=== PATIENT | female | born 1980 | race Caucasian/White ===

== ENCOUNTER → 2016-04-21 | Outpatient (CLI) | payer OTHER ==
[2016-04-21 15:18] LABS: BASO % 0.2 % (0.0-1.0); EOS # 0.1 K/mm3 (0.0-0.50); LARGE UNSTAINED CELL # 0.2 K/mm3 (0.0-0.4); LARGE UNSTAINED CELL % 1.9 % (0.0-4.0); LYMPH # 1.8 K/mm3 (1.5-4.5); LYMPH % 19.2 % (24.0-44.0); MEAN CORPUSCULAR HEMOGLOBIN 30.3 pg (27.0-33.0); MEAN CORPUSCULAR HGB CONC 33.8 g/dl (32.0-36.5); MEAN CORPUSCULAR VOLUME 89.8 fl (80.0-96.0); MONO # 0.6 K/mm3 (0.0-0.8); MONO % 6.5 % (0.0-5.0); NEUTROPHILS # 6.5 K/mm3 (1.8-7.7); NEUTROPHILS % 71.2 % (36.0-66.0); PLATELET COUNT, AUTOMATED 222 k/mm3 (150-450); RED CELL DISTRIBUTION WIDTH 11.5 % (11.5-14.5); WHITE BLOOD COUNT 9.1 K/mm3 (4.0-10.0)
[2016-04-22 08:43] LABS: HIV SCRN NEGATIVE (NEGATIVE); HIV SCRN1 NEGATIVE (NEGATIVE)
[2016-04-22 08:44] LABS: CONTROL LINE INT CTR LINE PRESENT
== END ==
LOC: M LAB 14:14
PROVIDERS: ATTEND Specialist
DX: Z34.81 Encounter for supervision of other normal pregnancy, first trimester (principal)

== ENCOUNTER 2016-06-05 01:49 | Emergency (ER) | payer OTHER ==
[~2016-06-05] VITALS: Ht 160 cm; Wt 62.6 kg
[2016-06-05 01:53] VITALS: BP 159/88
[2016-06-05] MEDS ORDERED: AMOX500C PO (02:06)
[2016-06-05] MEDS ORDERED: NORCO 5/325MG TABLET (BULK) PO ONE (02:15)
[2016-06-05] MEDS ORDERED: AMOXICILLIN 500 MG CAP PO ONE (02:15)
[2016-06-05] MEDS ORDERED: LOVE1INJ SC (10:20)
[2016-06-05] MEDS ORDERED: CLEO300C2 PO (12:51)
[2016-06-06] MEDS ORDERED: CLEO300C2 PO (16:58)
== END 2016-06-05 02:18 | disposition home or self-care (01) ==
LOC: M ED 02:15
DX: O99.89 Other specified diseases and conditions complicating pregnancy, childbirth and the puerperium (principal); K08.9 Disorder of teeth and supporting structures, unspecified; I35.0 Nonrheumatic aortic (valve) stenosis; Z95.4 Presence of other heart-valve replacement; O99.330 Smoking (tobacco) complicating pregnancy, unspecified trimester; F17.210 Nicotine dependence, cigarettes, uncomplicated; Z3A.00 Weeks of gestation of pregnancy not specified

== ENCOUNTER 2016-06-05 10:03 | Emergency (ER) | payer OTHER ==
[~2016-06-05] VITALS: Ht 160 cm; Wt 62.6 kg
[~2016-06-05 10:03] MED LIST: AMOX500C PO
[2016-06-05] MEDS ORDERED: LOVE1INJ SC (10:20)
[2016-06-05] MEDS ORDERED: CLINDAMYCIN 900 MG in APPROPRIATE DILUENT 1 EA IV ONE (11:00)
[2016-06-05] MEDS ORDERED: MORPHINE 2 MG/ML 1ML SYRINGE IV ONE (11:00)
[2016-06-05 11:36] LABS: BASO % 0.3 % (0.0-1.0); EOS # 0.1 K/mm3 (0.0-0.50); EOS % 0.7 % (0.0-3.0); LARGE UNSTAINED CELL # 0.1 K/mm3 (0.0-0.4); LARGE UNSTAINED CELL % 1.1 % (0.0-4.0); LYMPH # 1.4 K/mm3 (1.5-4.5); LYMPH % 9.7 % (24.0-44.0); MEAN CORPUSCULAR HEMOGLOBIN 31.1 pg (27.0-33.0); MEAN CORPUSCULAR HGB CONC 34.8 g/dl (32.0-36.5); MEAN CORPUSCULAR VOLUME 89.5 fl (80.0-96.0); MONO # 0.8 K/mm3 (0.0-0.8); MONO % 6.1 % (0.0-5.0); NEUTROPHILS # 10.4 K/mm3 (1.8-7.7); NEUTROPHILS % 82.1 % (36.0-66.0); PLATELET COUNT, AUTOMATED 196 k/mm3 (150-450); RED CELL DISTRIBUTION WIDTH 11.9 % (11.5-14.5); WHITE BLOOD COUNT 12.7 K/mm3 (4.0-10.0)
[2016-06-05] MEDS ORDERED: MORPHINE 4 MG/ML 1ML SYRINGE IV ONE (12:30)
[2016-06-05] MEDS ORDERED: CLEO300C2 PO (12:51)
[2016-06-05 13:23] VITALS: BP 132/68
[2016-06-06] MEDS ORDERED: CLEO300C2 PO (16:58)
== END 2016-06-05 13:24 | disposition home or self-care (01) ==
LOC: M ED 10:56
DX: O99.89 Other specified diseases and conditions complicating pregnancy, childbirth and the puerperium (principal); K04.7 Periapical abscess without sinus; K02.9 Dental caries, unspecified; O99.330 Smoking (tobacco) complicating pregnancy, unspecified trimester; F17.210 Nicotine dependence, cigarettes, uncomplicated; Z95.4 Presence of other heart-valve replacement; Z3A.00 Weeks of gestation of pregnancy not specified

== ENCOUNTER 2016-06-06 16:09 | Emergency (ER) | payer OTHER ==
[~2016-06-06] VITALS: Ht 160 cm; Wt 62.6 kg
[2016-06-06 16:09] VITALS: BP 120/56
[~2016-06-06 16:09] MED LIST changes: +CLEO300C2 PO; +LOVE1INJ SC
[2016-06-06] MEDS ORDERED: CLEO300C2 PO (16:58)
== END 2016-06-06 17:03 | disposition home or self-care (01) ==
LOC: M ED 16:36
DX: K02.9 Dental caries, unspecified (principal); K08.89 Other specified disorders of teeth and supporting structures; F17.200 Nicotine dependence, unspecified, uncomplicated; Z79.01 Long term (current) use of anticoagulants; Z88.1 Allergy status to other antibiotic agents

== ENCOUNTER 2016-06-14 19:43 | Emergency (ER) | payer OTHER ==
[~2016-06-14] VITALS: Ht 160 cm; Wt 62.6 kg
[2016-06-14] MEDS ORDERED: ONDANSETRON 4MG/2ML VIAL (J2405) IV ONE (20:30)
[2016-06-14] MEDS ORDERED: NS 1,000 ML IV ONE (20:30)
[2016-06-14 21:04] LABS: BASO % 0.1 % (0.0-1.0); EOS % 0.3 % (0.0-3.0); LARGE UNSTAINED CELL # 0.1 K/mm3 (0.0-0.4); LARGE UNSTAINED CELL % 0.6 % (0.0-4.0); LYMPH # 0.4 K/mm3 (1.5-4.5); LYMPH % 3.8 % (24.0-44.0); MEAN CORPUSCULAR HEMOGLOBIN 31.4 pg (27.0-33.0); MEAN CORPUSCULAR HGB CONC 34.7 g/dl (32.0-36.5); MEAN CORPUSCULAR VOLUME 90.6 fl (80.0-96.0); MONO # 0.4 K/mm3 (0.0-0.8); MONO % 4.3 % (0.0-5.0); NEUTROPHILS # 9.1 K/mm3 (1.8-7.7); NEUTROPHILS % 90.9 % (36.0-66.0); PLATELET COUNT, AUTOMATED 169 k/mm3 (150-450)
[2016-06-14 21:27] LABS: ALBUMIN 3.6 GM/DL (3.2-5.2); ALBUMIN/GLOBULIN RATIO 1.06 (1.00-1.93); ALKALINE PHOSPHATASE 56 U/L (45-117); ALT/SGPT 30 U/L (12-78); AMYLASE 46 U/L (25-115); ANION GAP 10 MEQ/L (8-16); AST/SGOT 18 U/L (15-37); BILIRUBIN,DIRECT < 0.1 MG/DL (0.0-0.2); BILIRUBIN,TOTAL 0.3 MG/DL (0.2-1.0); BLOOD UREA NITROGEN 5 MG/DL (7-18); CALCIUM LEVEL 8.6 MG/DL (8.5-10.1); CARBON DIOXIDE LEVEL 22 MEQ/L (21-32); CHLORIDE LEVEL 104 MEQ/L (98-107); CREATININE FOR GFR 0.49 MG/DL (0.55-1.02); GLOMERULAR FILTRATION RATE > 60.0 (>60); GLUCOSE, FASTING 97 MG/DL (70-105); POTASSIUM SERUM 3.4 MEQ/L (3.5-5.1); SODIUM LEVEL 136 MEQ/L (136-145)
[2016-06-14] MEDS ORDERED: ZOFR4TAB3 PO (21:53)
[2016-06-14 22:34] VITALS: BP 105/51
== END 2016-06-14 22:32 | disposition home or self-care (01) ==
LOC: M ED 20:38
DX: O99.89 Other specified diseases and conditions complicating pregnancy, childbirth and the puerperium (principal); K29.00 Acute gastritis without bleeding; O99.419 Diseases of the circulatory system complicating pregnancy, unspecified trimester; I51.9 Heart disease, unspecified; Z95.1 Presence of aortocoronary bypass graft; O99.330 Smoking (tobacco) complicating pregnancy, unspecified trimester; Z82.49 Family history of ischemic heart disease and other diseases of the circulatory system
CPT/HCPCS: 80048; 80076; 81001; 82150; 83690; 85025; 87086; 96374; 99282; J2405

== ENCOUNTER → 2016-06-23 | Outpatient (CLI) | payer OTHER ==
[~2016-06-23] MED LIST changes: +ZOFR4TAB3 PO
[2016-06-23 11:24] LABS: INR 1.24
== END ==
LOC: M LAB 09:26
PROVIDERS: ATTEND Internal Medicine Cardiovascular Disease
DX: Z51.81 Encounter for therapeutic drug level monitoring (principal); Z95.2 Presence of prosthetic heart valve; Z79.01 Long term (current) use of anticoagulants

== ENCOUNTER → 2016-07-03 | Outpatient (CLI) | payer OTHER ==
[2016-07-03 11:56] LABS: INR 1.37
== END ==
LOC: M LAB 11:00
PROVIDERS: ATTEND Internal Medicine Cardiovascular Disease
DX: Z51.81 Encounter for therapeutic drug level monitoring (principal); Z79.01 Long term (current) use of anticoagulants; Z95.2 Presence of prosthetic heart valve

== ENCOUNTER → 2016-07-10 | Outpatient (CLI) | payer OTHER ==
[~2016-07-10] MED LIST changes: +ASPI81TA85 PO; +COUM7.5T PO; +HYDR-3713 PO; +TYLE325T5 PO; +WARF-22 PO
== END ==
LOC: M LAB 09:40
PROVIDERS: ATTEND Advanced Practice Midwife
DX: Z31.438 Encounter for other genetic testing of female for procreative management (principal)

== ENCOUNTER → 2016-07-10 | Outpatient (CLI) | payer OTHER ==
[2016-07-10 10:40] LABS: INR 1.89
== END ==
LOC: M LAB 09:43
PROVIDERS: ATTEND Physician Assistant
DX: Z95.2 Presence of prosthetic heart valve (principal); Z79.01 Long term (current) use of anticoagulants

== ENCOUNTER 2016-07-12 19:00 | Emergency (ER) | payer OTHER ==
[~2016-07-12] VITALS: Ht 160 cm; Wt 64.4 kg
[2016-07-12 19:00] VITALS: BP 146/70
[~2016-07-12 19:00] MED LIST changes: -ASPI81TA85 PO; -COUM7.5T PO; -HYDR-3713 PO; -TYLE325T5 PO; -WARF-22 PO
[2016-07-12] MEDS ORDERED: WARF-22 PO (19:15)
[2016-07-12] MEDS ORDERED: COUM7.5T PO (19:15)
[2016-07-12] MEDS ORDERED: TYLE325T5 PO (19:15)
[2016-07-12] MEDS ORDERED: ASPI81TA85 PO (19:15)
[2016-07-12] MEDS ORDERED: HYDR-3713 PO (20:06)
[2016-07-12] MEDS ORDERED: NORCO 5/325MG TABLET (BULK FOR ED) PO ONE (20:15)
[2016-07-12] MEDS ORDERED: AMOXICILLIN 500 MG CAP PO ONE (20:15)
== END 2016-07-12 20:20 | disposition home or self-care (01) ==
LOC: M ED 20:12
DX: O99.89 Other specified diseases and conditions complicating pregnancy, childbirth and the puerperium (principal); K08.9 Disorder of teeth and supporting structures, unspecified; Z3A.17 17 weeks gestation of pregnancy; Z88.1 Allergy status to other antibiotic agents; Z79.01 Long term (current) use of anticoagulants; Z79.82 Long term (current) use of aspirin; Z79.899 Other long term (current) drug therapy; Z95.4 Presence of other heart-valve replacement

== ENCOUNTER → 2016-07-21 | Outpatient (CLI) | payer OTHER ==
[~2016-07-21] MED LIST changes: +ASPI81TA85 PO; +COUM7.5T PO; +HYDR-3713 PO; +TYLE325T5 PO; +WARF-22 PO
[2016-07-21 12:19] LABS: INR 2.37
== END ==
LOC: M LAB 09:54
PROVIDERS: ATTEND Internal Medicine Cardiovascular Disease
DX: Z95.2 Presence of prosthetic heart valve (principal)

== ENCOUNTER → 2016-08-04 | Outpatient (CLI) | payer OTHER ==
[2016-08-04 11:25] LABS: INR 2.25
== END ==
LOC: M LAB 10:55
PROVIDERS: ATTEND Nurse Practitioner Family
DX: Z95.2 Presence of prosthetic heart valve (principal)

== ENCOUNTER → 2016-08-14 | Outpatient (CLI) | payer OTHER ==
[2016-08-14 09:12] LABS: INR 2.34
== END ==
LOC: M LAB 06:24
PROVIDERS: ATTEND Physician Assistant
DX: Z51.81 Encounter for therapeutic drug level monitoring (principal); Z79.01 Long term (current) use of anticoagulants; Z95.2 Presence of prosthetic heart valve

== ENCOUNTER → 2016-08-14 | Outpatient (CLI) | payer OTHER ==
[2016-08-14 08:26] LABS: BASO % 0.2 % (0.0-1.0); EOS # 0.1 K/mm3 (0.0-0.50); EOS % 0.7 % (0.0-3.0); LARGE UNSTAINED CELL # 0.1 K/mm3 (0.0-0.4); LYMPH % 9.8 % (24.0-44.0); MEAN CORPUSCULAR HEMOGLOBIN 32.4 pg (27.0-33.0); MEAN CORPUSCULAR HGB CONC 34.2 g/dl (32.0-36.5); MEAN CORPUSCULAR VOLUME 94.7 fl (80.0-96.0); MONO # 0.5 K/mm3 (0.0-0.8); MONO % 5.5 % (0.0-5.0); NEUTROPHILS % 82.7 % (36.0-66.0); PLATELET COUNT, AUTOMATED 168 k/mm3 (150-450); RED CELL DISTRIBUTION WIDTH 13.3 % (11.5-14.5); WHITE BLOOD COUNT 9.7 K/mm3 (4.0-10.0)
== END ==
LOC: M LAB 06:27
PROVIDERS: ATTEND Obstetrics & Gynecology
DX: Z36 Encounter for antenatal screening of mother (principal); Z79.01 Long term (current) use of anticoagulants; Z95.2 Presence of prosthetic heart valve

== ENCOUNTER → 2016-08-21 | Outpatient (CLI) | payer OTHER ==
[2016-08-21 11:34] LABS: INR 2.6
== END ==
LOC: M LAB 10:28
PROVIDERS: ATTEND Physician Assistant
DX: Z95.2 Presence of prosthetic heart valve (principal)

== ENCOUNTER → 2016-09-04 | Outpatient (CLI) | payer OTHER ==
[2016-09-04 13:28] LABS: INR 2.43
== END ==
LOC: M LAB 11:36
PROVIDERS: ATTEND Physician Assistant
DX: Z95.2 Presence of prosthetic heart valve (principal)

== ENCOUNTER → 2016-09-17 | Outpatient (CLI) | payer OTHER ==
[2016-09-17 14:17] LABS: INR 1.43
== END ==
LOC: M LAB 13:18
PROVIDERS: ATTEND Physician Assistant
DX: Z95.2 Presence of prosthetic heart valve (principal)

== ENCOUNTER → 2016-10-08 | Outpatient (CLI) | payer OTHER ==
[2016-10-08 12:21] LABS: INR 3.29
== END ==
LOC: M LAB 11:27
PROVIDERS: ATTEND Nurse Practitioner Family
DX: Z95.2 Presence of prosthetic heart valve (principal)

== ENCOUNTER → 2016-11-12 | Outpatient (CLI) | payer OTHER ==
[2016-11-12 12:06] LABS: BASO % 0.1 % (0.0-1.0); EOS # 0.1 K/mm3 (0.0-0.50); EOS % 0.8 % (0.0-3.0); LARGE UNSTAINED CELL # 0.1 K/mm3 (0.0-0.4); LARGE UNSTAINED CELL % 1.2 % (0.0-4.0); LYMPH # 1.2 K/mm3 (1.5-4.5); LYMPH % 9.5 % (24.0-44.0); MEAN CORPUSCULAR HEMOGLOBIN 32.1 pg (27.0-33.0); MEAN CORPUSCULAR HGB CONC 34.5 g/dl (32.0-36.5); MEAN CORPUSCULAR VOLUME 92.8 fl (80.0-96.0); MONO # 0.7 K/mm3 (0.0-0.8); MONO % 6.5 % (0.0-5.0); NEUTROPHILS # 9.1 K/mm3 (1.8-7.7); NEUTROPHILS % 81.9 % (36.0-66.0); PLATELET COUNT, AUTOMATED 232 k/mm3 (150-450); RED CELL DISTRIBUTION WIDTH 12.8 % (11.5-14.5); WHITE BLOOD COUNT 11.2 K/mm3 (4.0-10.0)
[2016-11-12 12:22] LABS: ALBUMIN 3.1 GM/DL (3.2-5.2); ANION GAP 10 MEQ/L (8-16); BLOOD UREA NITROGEN 10 MG/DL (7-18); CALCIUM LEVEL 9.1 MG/DL (8.5-10.1); CARBON DIOXIDE LEVEL 23 MEQ/L (21-32); CHLORIDE LEVEL 107 MEQ/L (98-107); CREATININE FOR GFR 0.59 MG/DL (0.55-1.02); GLOMERULAR FILTRATION RATE > 60.0 (>60); GLUCOSE, FASTING 89 MG/DL (70-105); SODIUM LEVEL 140 MEQ/L (136-145)
== END ==
LOC: M LAB 11:29
PROVIDERS: ATTEND Internal Medicine Cardiovascular Disease
DX: Q24.4 Congenital subaortic stenosis (principal); I27.2 Other secondary pulmonary hypertension

== ENCOUNTER 2016-11-25 19:40 | Outpatient (CLI) | payer OTHER ==
[~2016-11-25] VITALS: Ht 160 cm; Wt 68.0 kg
[2016-11-25 20:05] VITALS: BP 166/78
[2016-11-25 20:22] VITALS: BP 150/70
[2016-11-25 20:40] VITALS: BP 137/84
== END 2016-11-25 20:51 | disposition home or self-care (01) ==
LOC: M LDO 19:40
PROVIDERS: ATTEND Advanced Practice Midwife
DX: O47.03 False labor before 37 completed weeks of gestation, third trimester (principal); Z3A.36 36 weeks gestation of pregnancy; O99.419 Diseases of the circulatory system complicating pregnancy, unspecified trimester; Z87.74 Personal history of (corrected) congenital malformations of heart and circulatory system; I27.2 Other secondary pulmonary hypertension; Z95.2 Presence of prosthetic heart valve; Z88.1 Allergy status to other antibiotic agents

== ENCOUNTER → 2016-12-19 | Outpatient (CLI) | payer OTHER ==
[2016-12-19 12:45] LABS: INR 1.71
== END ==
LOC: M LAB 11:42
PROVIDERS: ATTEND Internal Medicine Cardiovascular Disease
DX: Z95.2 Presence of prosthetic heart valve (principal)

== ENCOUNTER → 2017-02-10 | Outpatient (CLI) | payer OTHER ==
[~2017-02-10] MED LIST changes: +COUM1TAB17 PO; +TYLE500T78 PO
[2017-02-10 13:17] LABS: INR 1.72
== END ==
LOC: M LAB 12:16
PROVIDERS: ATTEND Internal Medicine Cardiovascular Disease
DX: Z95.2 Presence of prosthetic heart valve (principal)

== ENCOUNTER 2017-02-18 06:01 | Day surgery (SDC) | payer OTHER ==
[~2017-02-18] VITALS: Ht 160 cm; Wt 66.7 kg
[2017-02-18] MEDS ORDERED: LR 1,000 ML IV SCH ×2 (06:15→10:15)
[2017-02-18] MEDS ORDERED: LIDOCAINE 1% MDV 20ML VIAL SQ PRN (06:15)
[2017-02-18 06:30] LABS: MEAN CORPUSCULAR HEMOGLOBIN 30.5 pg (27.0-33.0); MEAN CORPUSCULAR HGB CONC 34.4 g/dl (32.0-36.5); MEAN CORPUSCULAR VOLUME 88.5 fl (80.0-96.0); PLATELET COUNT, AUTOMATED 282 10^3/uL (150-450); RED CELL DISTRIBUTION WIDTH 11.9 % (11.5-14.5); WHITE BLOOD COUNT 6.6 10^3/uL (4.0-10.0)
[2017-02-18 06:44] LABS: CONTROL LINE HCG INT CTR LINE PRESENT
[2017-02-18] MEDS ORDERED: LOVE0.4I2 SC (06:52)
[2017-02-18 07:03] LABS: INR 1.02
[2017-02-18] MEDS ORDERED: ONDANSETRON 4MG/2ML VIAL (J2405) As Ordered ONE (07:13)
[2017-02-18] MEDS ORDERED: dexameTHASONE 4 MG/ML 1ML VIAL (J1100) As Ordered ONE (07:13)
[2017-02-18] MEDS ORDERED: LIDOCAINE 2% INJ 100 MG/5 ML SDV (FOR ANES.) As Ordered ONE (07:13)
[2017-02-18] MEDS ORDERED: ROCURONIUM BROMIDE 50 MG/5 ML VIAL As Ordered ONE (07:13)
[2017-02-18] MEDS ORDERED: PROPOFOL 200 MG/20 ML VIAL As Ordered ONE (07:13)
[2017-02-18] MEDS ORDERED: fentaNYL 100 MCG/2 ML INJECTION (J3010) As Ordered ONE (07:14)
[2017-02-18] MEDS ORDERED: MIDAZOLAM INJ 2 MG/2 ML VIAL (J2250) As Ordered ONE (07:14)
[2017-02-18] MEDS ORDERED: BUPIVACAINE HCL 0.25% 30 ML VIAL As Ordered ONE (07:16)
[2017-02-18] MEDS: SILVER NITRATE APPLICATOR As Ordered ONE ×2 (07:16→09:01)
[2017-02-18] MEDS ORDERED: GLYCOPYRROLATE INJ 0.2 MG/ML 2 ML VIAL As Ordered ONE (08:21)
[2017-02-18] MEDS ORDERED: NEOSTIGMINE 10 MG/10 ML VIAL (J2710) As Ordered ONE (08:21)
[2017-02-18] MEDS ORDERED: HYDROmorphone HCL 2 MG/ML 1ML VIAL (J1170) As Ordered ONE (08:24)
--- NOTE | 2017-02-18 09:52 | RO ---
DATE OF PROCEDURE: 02/18/2017 PREOPERATIVE DIAGNOSIS: Satisfied parity. POSTOPERATIVE DIAGNOSIS: Satisfied parity. PROCEDURE PERFORMED: Laparoscopic bilateral salpingectomy. SURGEON: Ari Baxter DO PHOTO OPTICS TECHNICIAN: DAVIS Card-III ANESTHESIA TYPE: General endotracheal. SPECIMENS SENT TO PATHOLOGY: Bilateral fallopian tubes. ESTIMATED BLOOD LOSS: 10 mL. FLUIDS REPLACED: 1000 mL lactated Ringer. DRAINS: Singh catheter. URINE OUTPUT: 300 mL. COMPLICATIONS: None. PREOPERATIVE ANTIBIOTICS: None indicated. INTRAOPERATIVE FINDINGS: The uterus was approximately 8-10-week size with multiple subserosal fibroids, the largest measuring approximately 2-3 cm in greatest dimension. Otherwise, normal bilateral adnexa, normal-appearing ovaries on the right and left side. No other intra-abdominal masses. There are some physiologic adhesions on the left side attached to the sigmoid colon to the left pelvic sidewall. Normal-appearing liver edge and gallbladder. Appendix not visualized. DESCRIPTION OF PROCEDURE: The patient was counseled and consented on the risks, benefits, indications, and alternatives of the procedure. Informed consent was obtained. She was taken to the operating room with an IV running and placed on the operating table in the dorsal supine position. General anesthesia was administered and the airway secured without any difficulty. She was placed in the low lithotomy position. She was prepared and draped in normal sterile fashion. Time-out was performed per protocol. Attention was turned to the pelvis. The Singh catheter was placed under sterile conditions. A sterile speculum was placed into the vagina with good visualization of the cervix. The anterior lip of the cervix was grasped with a single-tooth tenaculum, and downward traction was applied. The cervix was sequentially dilated with Jovani dilators. The uterus sounded to 8 cm. The Hul[employer] uterine manipulator was placed without any difficulty. The sterile speculum was removed. Attention was turned to the abdomen. A glove switch was performed. 0.25% Marcaine was injected into the umbilicus. An 8 mm umbilical incision was made with the #11 blade. Through this incision, a Veress needle was placed into the intraperitoneal cavity. Intraperitoneal placement was confirmed with ease of flow of normal saline, negative return on aspiration, and a positive drop test. Opening pressure was 6 mmHg. The abdomen was insufflated with 1.5 liters of gas. The Veress needle was removed. The size 5 mm XL laparoscopic trocar was used to gain laparoscopic entry into the intraperitoneal cavity. Intraperitoneal placement through the umbilical incision was confirmed with laparoscopic visualization. No additional bleeding or injury was noted. The patient was placed in steep Trendelenburg. Two additional laparoscopic port sites were placed on the patient's left side and the lower abdomen. 5 mm incisions were made after injection 0.25% Marcaine through these 5 mm incisions. 5 mm XL laparoscopic trocars were placed under direct visualization. The umbilical cannula was traded out for an 8 mm cannula to accommodate the fallopian tube removal. Attention was first turned to the right fallopian tube. The right fallopian tube was grasped at the fimbriated end and elevated. The underlying mesosalpinx/broad ligament was sequentially clamped, coagulated, and transected with the LigaSure device until the level of the cornu was reached. At the level of cornu, the fallopian tube was amputated. This fallopian tube was brought through a 5 mm port without any difficulty. Attention was then turned to the left fallopian tube. The left fallopian tube was followed out to the fimbriated end. The fimbria was grasped and elevated. The underlying mesosalpinx was sequentially clamped, coagulated, and transected. The fimbria was removed. However, too large to fit through the 5 mm cannula. This was placed in the posterior cul-de-sac. The remainder of the left fallopian tube was grasped and elevated, and the underlying mesosalpinx was sequentially clamped, coagulated, and transected with the LigaSure device until the level of cornu was reached, and the left fallopian tube was then amputated. The left fallopian tube segment was brought through the 5 mm cannula. The camera was switched to be placed in the 5 mm cannula through the 8 mm cannula. The remaining fimbriated end was removed out of the abdomen. Each specimen was sent together for final permanent section. The abdomen and pelvis were inspected. Excellent hemostasis was noted. Gas was released from the abdomen. As the gas was being released from the abdomen, no additional bleeding was noted. The cannulas were removed. The skin incisions were closed with 4-0 Monocryl in subcuticular fashion and reinforced with Dermabond. Sponge, lap, needle, and instrument counts were correct. Attention was turned to the vagina. The single-tooth tenaculum was removed. The [employer] uterine manipulator was removed. Sterile speculum was placed. The tenaculum sites were cauterized with silver nitrate. Excellent hemostasis was achieved. Sterile speculum was removed. The Singh catheter was removed. Sponge, lap, needle, and instrument counts were correct. The patient tolerated the entire procedure well. She was transferred to the postanesthesia care unit (PACU) in good stable condition.
[2017-02-18] MEDS ORDERED: METOCLOPRAMIDE INJ 10MG/2ML VIAL (J2765) IV PRN (10:15)
[2017-02-18] MEDS ORDERED: HYDROmorphone HCL 1 MG/ML SYRINGE (J1170) IV PRN (10:15)
[2017-02-18] MEDS ORDERED: fentaNYL 100 MCG/2 ML INJECTION (J3010) IV PRN (10:15)
[2017-02-18] MEDS ORDERED: PERCOCET 5MG/325MG TAB PO PRN (10:15)
[2017-02-18 10:45] VITALS: BP 130/62
== END 2017-02-18 10:55 | disposition home or self-care (01) ==
LOC: M SDC 06:01
PROVIDERS: ATTEND Obstetrics & Gynecology
DX: Z30.2 Encounter for sterilization (principal); I35.0 Nonrheumatic aortic (valve) stenosis; Q24.9 Congenital malformation of heart, unspecified; T88.59XD Other complications of anesthesia, subsequent encounter; K21.9 Gastro-esophageal reflux disease without esophagitis; G43.909 Migraine, unspecified, not intractable, without status migrainosus; Z79.01 Long term (current) use of anticoagulants; Z72.0 Tobacco use; Z86.79 Personal history of other diseases of the circulatory system
CPT/HCPCS: 36415; 58661; 84703; 85027; 85610; 86850; 86870; 86900; 86901; 88302; J1100; J1170; J2250; J2405; J2710; J3010

== ENCOUNTER → 2017-04-03 | Outpatient (CLI) | payer OTHER ==
[2017-04-03 20:39] LABS: ESTIMATED AVERAGE GLUCOSE 94 MG/DL (60-110); HEMOGLOBIN A1c 4.9 %
[2017-04-03 20:49] LABS: ALBUMIN 3.8 GM/DL (3.2-5.2); ALBUMIN/GLOBULIN RATIO 1.15 (1.00-1.93); ALKALINE PHOSPHATASE 111 U/L (45-117); ALT/SGPT 29 U/L (12-78); ANION GAP 7 MEQ/L (8-16); AST/SGOT 20 U/L (7-37); BILIRUBIN,TOTAL 0.2 MG/DL (0.2-1.0); BLOOD UREA NITROGEN 15 MG/DL (7-18); CALCIUM LEVEL 8.4 MG/DL (8.5-10.1); CARBON DIOXIDE LEVEL 29 MEQ/L (21-32); CHLORIDE LEVEL 106 MEQ/L (98-107); CREATININE FOR GFR 0.95 MG/DL (0.55-1.02); FREE T4 0.97 NG/DL (0.76-1.46); GLOMERULAR FILTRATION RATE > 60.0 (>60); GLUCOSE, FASTING 110 MG/DL (70-105); POTASSIUM SERUM 3.7 MEQ/L (3.5-5.1); SODIUM LEVEL 142 MEQ/L (136-145); TOTAL PROTEIN 7.1 GM/DL (6.4-8.2)
== END ==
LOC: M LAB 15:47
DX: Z13.29 Encounter for screening for other suspected endocrine disorder (principal)
CPT/HCPCS: 84443

== ENCOUNTER → 2017-04-17 | Outpatient (CLI) | payer OTHER ==
[2017-04-17 11:09] LABS: INR 1.74; PROTHROMBIN TIME 20.9 SECONDS (12.4-14.5)
== END ==
LOC: M LAB 10:14
DX: Z95.2 Presence of prosthetic heart valve (principal)
CPT/HCPCS: 85610

== ENCOUNTER → 2017-05-15 | Outpatient (CLI) | payer OTHER ==
[2017-05-15 11:52] LABS: D-DIMER QUANT 315.1 ng/ml (<500)
== END ==
LOC: M LAB 11:10
DX: R07.1 Chest pain on breathing (principal); Z51.81 Encounter for therapeutic drug level monitoring; Z79.01 Long term (current) use of anticoagulants; Z95.2 Presence of prosthetic heart valve
CPT/HCPCS: 71046

== ENCOUNTER → 2017-05-15 | Outpatient (CLI) | payer OTHER ==
[2017-05-15 11:49] LABS: INR 2.39
== END ==
LOC: M LAB 11:16
DX: Z51.81 Encounter for therapeutic drug level monitoring (principal); Z79.01 Long term (current) use of anticoagulants; Z95.2 Presence of prosthetic heart valve
CPT/HCPCS: 85610

== ENCOUNTER → 2017-06-02 | Outpatient (CLI) | payer OTHER ==
[2017-06-02 10:46] LABS: ERYTHROCYTE SEDIMENTATION RATE 18 mm/hr (0-20)
[2017-06-02 11:07] LABS: C REACTIVE PROTEIN QUANTITATIV < 0.30 MG/DL (0.00-0.30)
== END ==
LOC: M LAB 09:57
DX: R07.1 Chest pain on breathing (principal)
CPT/HCPCS: 86140

== ENCOUNTER → 2017-06-18 | Outpatient (CLI) | payer OTHER ==
[2017-06-18 10:35] LABS: INR 1.44; PROTHROMBIN TIME 17.9 SECONDS (12.4-14.5)
== END ==
LOC: M LAB 09:22
DX: Z95.2 Presence of prosthetic heart valve (principal)

== ENCOUNTER → 2017-06-26 | Outpatient (CLI) | payer OTHER ==
[2017-06-26 12:07] LABS: INR 2.39
== END ==
LOC: M LAB 11:12
DX: Z95.2 Presence of prosthetic heart valve (principal); Z79.01 Long term (current) use of anticoagulants
CPT/HCPCS: 85610

== ENCOUNTER → 2017-07-30 | Outpatient (CLI) | payer OTHER ==
[2017-07-30 13:14] LABS: INR 2.22; PROTHROMBIN TIME 25.5 SECONDS (12.4-14.5)
== END ==
LOC: M LAB 12:43
DX: Z95.2 Presence of prosthetic heart valve (principal)
CPT/HCPCS: 85610

== ENCOUNTER → 2017-09-10 | Outpatient (CLI) | payer OTHER | LOC: M LAB 14:26 | DX: Z95.2 Presence of prosthetic heart valve (principal) | CPT/HCPCS: 85610 ==

== ENCOUNTER → 2017-10-13 | Outpatient (CLI) | payer OTHER ==
[2017-10-13 15:48] LABS: INR 1.38; PROTHROMBIN TIME 17.2 SECONDS (12.1-14.4)
== END ==
LOC: M LAB 11:38
DX: Z51.81 Encounter for therapeutic drug level monitoring (principal); Z79.01 Long term (current) use of anticoagulants; Z95.2 Presence of prosthetic heart valve
CPT/HCPCS: 85610

== ENCOUNTER → 2018-01-14 | Outpatient (CLI) | payer OTHER ==
[2018-01-14 11:37] LABS: INR 3.37; PROTHROMBIN TIME 34.9 SECONDS (12.1-14.4)
== END ==
LOC: M LAB 10:46
DX: Z51.81 Encounter for therapeutic drug level monitoring (principal); Z79.01 Long term (current) use of anticoagulants; Z95.2 Presence of prosthetic heart valve
CPT/HCPCS: 85610

== ENCOUNTER → 2018-02-12 | Outpatient (CLI) | payer OTHER ==
[2018-02-12 12:57] LABS: INR 4.76; PROTHROMBIN TIME 45.9 SECONDS (12.1-14.4)
== END ==
LOC: M LAB 11:31
DX: Z95.2 Presence of prosthetic heart valve (principal)
CPT/HCPCS: 85610

== ENCOUNTER → 2018-04-02 | Outpatient (CLI) | payer OTHER ==
[~2018-04-02] MED LIST changes: +LOVE0.4I2 SC; +ZOFR4TAB14 PO; -ZOFR4TAB3 PO
[2018-04-02 08:05] LABS: INR 2.25; PROTHROMBIN TIME 25.4 SECONDS (12.1-14.4)
== END ==
LOC: M LAB 07:12
PROVIDERS: ATTEND Physician Assistant
DX: Z95.2 Presence of prosthetic heart valve (principal)

== ENCOUNTER → 2018-06-11 | Outpatient (CLI) | payer OTHER ==
[2018-06-11 16:51] LABS: INR 2.27; PROTHROMBIN TIME 25.5 SECONDS (12.1-14.4)
== END ==
LOC: M LAB 15:46
PROVIDERS: ATTEND Physician Assistant
DX: Z95.2 Presence of prosthetic heart valve (principal); Z79.01 Long term (current) use of anticoagulants

== ENCOUNTER → 2018-07-05 | Outpatient (CLI) | payer OTHER ==
[2018-07-05 11:40] LABS: INR 2.76; PROTHROMBIN TIME 29.8 SECONDS (12.1-14.4)
== END ==
LOC: M LAB 10:18
PROVIDERS: ATTEND Physician Assistant
DX: Z95.2 Presence of prosthetic heart valve (principal)

== ENCOUNTER → 2018-08-16 | Outpatient (CLI) | payer OTHER ==
[2018-08-16 10:52] LABS: INR 1.89
== END ==
LOC: M LAB 10:04
PROVIDERS: ATTEND Physician Assistant
DX: Z95.2 Presence of prosthetic heart valve (principal)

== ENCOUNTER → 2018-09-22 | Outpatient (CLI) | payer OTHER ==
[2018-09-22 10:41] LABS: INR 2.46; PROTHROMBIN TIME 26.5 SECONDS (11.8-14.0)
== END ==
LOC: M LAB 10:02
PROVIDERS: ATTEND Physician Assistant
DX: Z95.2 Presence of prosthetic heart valve (principal)

== ENCOUNTER → 2018-11-02 | Outpatient (CLI) | payer OTHER ==
[2018-11-02 09:53] LABS: INR 2.21; PROTHROMBIN TIME 24.3 SECONDS (11.8-14.0)
== END ==
LOC: M LAB 08:42
PROVIDERS: ATTEND Physician Assistant
DX: Z95.2 Presence of prosthetic heart valve (principal)

== ENCOUNTER → 2018-12-01 | Outpatient (CLI) | payer OTHER ==
[2018-12-01 17:15] LABS: INR 3.01; PROTHROMBIN TIME 31.1 SECONDS (11.8-14.0)
== END ==
LOC: M LAB 15:44
PROVIDERS: ATTEND Physician Assistant
DX: Z95.2 Presence of prosthetic heart valve (principal)

== ENCOUNTER → 2019-01-04 | Outpatient (CLI) | payer OTHER ==
[2019-01-04 17:24] LABS: PROTHROMBIN TIME 49.5 SECONDS (11.8-14.0)
[2019-01-04 17:38] LABS: INR 5.37
== END ==
LOC: M LAB 15:29
PROVIDERS: ATTEND Physician Assistant
DX: Z95.2 Presence of prosthetic heart valve (principal)

== ENCOUNTER → 2019-01-28 | Outpatient (CLI) | payer OTHER ==
[2019-01-28 09:51] LABS: INR 4.43; PROTHROMBIN TIME 42.5 SECONDS (11.8-14.0)
== END ==
LOC: M LAB 08:45
PROVIDERS: ATTEND Physician Assistant
DX: Z95.2 Presence of prosthetic heart valve (principal)

== ENCOUNTER → 2019-02-16 | Outpatient (CLI) | payer OTHER ==
[2019-02-16 15:07] LABS: INR 2.81; PROTHROMBIN TIME 29.5 SECONDS (11.8-14.0)
== END ==
LOC: M LAB 14:03
PROVIDERS: ATTEND Physician Assistant
DX: Z95.2 Presence of prosthetic heart valve (principal); Z79.01 Long term (current) use of anticoagulants

== ENCOUNTER → 2019-05-09 | Outpatient (CLI) | payer OTHER ==
[2019-05-09 09:53] LABS: INR 2.46; PROTHROMBIN TIME 26.5 SECONDS (11.8-14.0)
== END ==
LOC: M LAB 09:07
PROVIDERS: ATTEND Physician Assistant
DX: Z95.2 Presence of prosthetic heart valve (principal)

== ENCOUNTER → 2019-07-01 | Outpatient (CLI) | payer OTHER ==
[2019-07-01 10:34] LABS: INR 2.33; PROTHROMBIN TIME 25.4 SECONDS (11.8-14.0)
== END ==
LOC: M LAB 09:25
PROVIDERS: ATTEND Physician Assistant
DX: Z95.2 Presence of prosthetic heart valve (principal)

== ENCOUNTER → 2019-07-28 | Outpatient (CLI) | payer OTHER ==
[2019-07-28 09:27] LABS: INR 3.92; PROTHROMBIN TIME 38.5 SECONDS (11.8-14.0)
== END ==
LOC: M LAB 08:26
PROVIDERS: ATTEND Physician Assistant
DX: Z95.2 Presence of prosthetic heart valve (principal)

== ENCOUNTER → 2019-08-17 | Outpatient (CLI) | payer OTHER ==
[~2019-08-17] MED LIST changes: -COUM7.5T PO; +COUM7.5T6 PO
[2019-08-17 11:16] LABS: INR 4.35; PROTHROMBIN TIME 41.8 SECONDS (11.8-14.0)
== END ==
LOC: M LAB 09:35
PROVIDERS: ATTEND Physician Assistant
DX: Z95.2 Presence of prosthetic heart valve (principal); Z79.01 Long term (current) use of anticoagulants

== ENCOUNTER → 2019-09-08 | Outpatient (REF) | payer OTHER | LOC: M LAB REF 17:09 | PROVIDERS: ATTEND Physician Assistant | DX: J02.9 Acute pharyngitis, unspecified (principal) ==

== ENCOUNTER → 2019-09-09 | Outpatient (CLI) | payer OTHER ==
[2019-09-09 10:43] LABS: INR 2.37; PROTHROMBIN TIME 25.7 SECONDS (11.8-14.0)
== END ==
LOC: M LAB 09:34
PROVIDERS: ATTEND Physician Assistant
DX: Z51.81 Encounter for therapeutic drug level monitoring (principal); Z79.01 Long term (current) use of anticoagulants

== ENCOUNTER → 2019-09-23 | Outpatient (CLI) | payer OTHER ==
[~2019-09-23] MED LIST changes: -ASPI81TA85 PO; +ASPI81TA86 PO
[2019-09-23 11:17] LABS: INR 2.06
== END ==
LOC: M LAB 10:35
PROVIDERS: ATTEND Physician Assistant
DX: Z95.2 Presence of prosthetic heart valve (principal)

== ENCOUNTER → 2019-10-21 | Outpatient (CLI) | payer OTHER ==
[2019-11-19 03:54] LABS: INR 2.48; PROTHROMBIN TIME 27.4 SECONDS (11.8-14.0)
== END ==
LOC: M LAB 08:45
PROVIDERS: ATTEND Physician Assistant
DX: Z95.2 Presence of prosthetic heart valve (principal)

== ENCOUNTER → 2019-12-19 | Outpatient (CLI) | payer OTHER ==
[2019-12-19 10:16] LABS: INR 3.16; PROTHROMBIN TIME 33.1 SECONDS (12.5-14.3)
== END ==
LOC: M LAB 09:30
PROVIDERS: ATTEND Physician Assistant
DX: Z51.81 Encounter for therapeutic drug level monitoring (principal); Z79.01 Long term (current) use of anticoagulants

== ENCOUNTER → 2020-02-06 | Outpatient (CLI) | payer OTHER ==
[2020-02-06 11:02] LABS: HEMATOCRIT 41.6 % (36.0-47.0); HEMOGLOBIN 13.5 g/dl (12.0-15.5); MEAN CORPUSCULAR HEMOGLOBIN 28.6 pg (27.0-33.0); MEAN CORPUSCULAR HGB CONC 32.5 g/dl (32.0-36.5); MEAN CORPUSCULAR VOLUME 88.1 fl (80.0-96.0); PLATELET COUNT, AUTOMATED 245 10^3/uL (150-450); RED BLOOD COUNT 4.72 10^6/uL (4.00-5.40); WHITE BLOOD COUNT 5.3 10^3/uL (4.0-10.0)
[2020-02-06 11:13] LABS: INR 1.87; PROTHROMBIN TIME 21.9 SECONDS (12.5-14.3)
[2020-02-06 12:03] LABS: BLOOD UREA NITROGEN 13 MG/DL (7-18); CALCIUM LEVEL 9.3 MG/DL (8.5-10.1); CARBON DIOXIDE LEVEL 28 MEQ/L (21-32); CHLORIDE LEVEL 105 MEQ/L (98-107); CREATININE FOR GFR 0.87 MG/DL (0.55-1.30); GLOMERULAR FILTRATION RATE > 60.0 (>60); GLUCOSE, FASTING 88 MG/DL (70-100); POTASSIUM SERUM 4.5 MEQ/L (3.5-5.1); SODIUM LEVEL 138 MEQ/L (136-145)
== END ==
LOC: M LAB 09:46
PROVIDERS: ATTEND Physician Assistant
DX: Z51.81 Encounter for therapeutic drug level monitoring (principal); Z79.01 Long term (current) use of anticoagulants

== ENCOUNTER → 2020-02-24 | Outpatient (CLI) | payer OTHER ==
[2020-02-24 09:31] LABS: INR 4.19; PROTHROMBIN TIME 41.4 SECONDS (12.5-14.3)
== END ==
LOC: M LAB 08:36
PROVIDERS: ATTEND Physician Assistant
DX: Z79.01 Long term (current) use of anticoagulants (principal)

== ENCOUNTER → 2020-03-07 | Outpatient (CLI) | payer OTHER ==
[2020-03-07 15:52] LABS: INR 3.02
== END ==
LOC: M LAB 14:42
PROVIDERS: ATTEND Physician Assistant
DX: Z51.81 Encounter for therapeutic drug level monitoring (principal); Z79.01 Long term (current) use of anticoagulants

== ENCOUNTER → 2020-03-28 | Outpatient (CLI) | payer OTHER ==
[2020-03-28 13:14] LABS: INR 1.7; PROTHROMBIN TIME 20.3 SECONDS (12.5-14.3)
== END ==
LOC: M LAB 10:40
PROVIDERS: ATTEND Physician Assistant
DX: Z79.899 Other long term (current) drug therapy (principal)

== ENCOUNTER → 2020-04-05 | Outpatient (CLI) | payer OTHER ==
[2020-04-05 11:48] LABS: INR 2.07; PROTHROMBIN TIME 23.8 SECONDS (12.5-14.3)
== END ==
LOC: M LAB 10:01
PROVIDERS: ATTEND Physician Assistant
DX: Z51.81 Encounter for therapeutic drug level monitoring (principal); Z79.01 Long term (current) use of anticoagulants

== ENCOUNTER 2020-04-24 10:53 | Emergency (ER) | payer OTHER ==
[~2020-04-24] VITALS: Ht 160 cm; Wt 77.7 kg
[2020-04-24 11:23] LABS: BASO % 0.4 % (0.0-1.0); EOS # 0.1 10^3/uL (0.0-0.5); EOS % 0.7 % (0.0-3.0); HEMATOCRIT 42.6 % (36.0-47.0); HEMOGLOBIN 14.6 g/dl (12.0-15.5); LYMPH # 2.3 10^3/uL (1.5-5.0); LYMPH % 31.4 % (24.0-44.0); MEAN CORPUSCULAR HEMOGLOBIN 29.9 pg (27.0-33.0); MEAN CORPUSCULAR HGB CONC 34.3 g/dl (32.0-36.5); MEAN CORPUSCULAR VOLUME 87.3 fl (80.0-96.0); MONO # 0.6 10^3/uL (0.0-0.8); MONO % 7.4 % (0.0-5.0); NEUTROPHILS # 4.5 10^3/uL (1.5-8.5); NEUTROPHILS % 59.8 % (36.0-66.0); PLATELET COUNT, AUTOMATED 238 10^3/uL (150-450); RED BLOOD COUNT 4.88 10^6/uL (4.00-5.40); WHITE BLOOD COUNT 7.5 10^3/uL (4.0-10.0)
--- NOTE | 2020-04-24 11:29 | REP ---
INDICATION: CHEST PAIN COMPARISON: 05/15/2017 TECHNIQUE: Portable AP view of the chest FINDINGS: The mediastinum and cardiac silhouette are stable and within normal limits for portable technique. Evidence for prior sternotomy and cardiac valve repair. The lung ricks are clear without acute consolidation, effusion, or pneumothorax. Skeletal structures are intact. IMPRESSION: No acute cardiopulmonary process appreciated. <Electronically signed by Javier Wallace > 04/24/20 [id number]
[2020-04-24 11:36] LABS: INR 1.08; PROTHROMBIN TIME 14.2 SECONDS (12.5-14.3)
[2020-04-24 11:58] LABS: ALBUMIN 4.3 GM/DL (3.2-5.2); ALT/SGPT 24 U/L (12-78); BILIRUBIN,DIRECT 0.2 MG/DL (0.0-0.2); BILIRUBIN,TOTAL 0.6 MG/DL (0.2-1.0); BLOOD UREA NITROGEN 17 MG/DL (7-18); CALCIUM LEVEL 9.4 MG/DL (8.5-10.1); CARBON DIOXIDE LEVEL 27 MEQ/L (21-32); CHLORIDE LEVEL 104 MEQ/L (98-107); CK-MB VALUE MASS < 1.0 NG/ML (<3.6); CPK CREATINE PHOSPHOKINASE 81 U/L (26-192); CREATININE FOR GFR 0.97 MG/DL (0.55-1.30); GLOMERULAR FILTRATION RATE > 60.0 (>60); GLUCOSE, FASTING 101 MG/DL (70-100); LIPASE 198 U/L (73-393); MB/CK RELATIVE INDEX 1.23 (< OR =4); POTASSIUM SERUM 3.6 MEQ/L (3.5-5.1); SODIUM LEVEL 139 MEQ/L (136-145); TROPONIN I < 0.02 NG/ML (< 0.10)
[2020-04-24 12:30] VITALS: BP 144/80
[2020-04-24] MEDS ORDERED: ENOXAPARIN 100MG/1ML SYRINGE (J1650 PER 10MG) SC ONE (12:30)
[2020-04-24] MEDS ORDERED: WARFARIN SOD 5MG TAB PO ONE (12:30)
[2020-04-24] MEDS ORDERED: LOVE1INJ SC (12:31)
[2020-04-24] MEDS ORDERED: PILL CUTTER 1 EACH XX ONE (12:35)
--- NOTE | 2020-04-24 20:13 | ECGEPIP ---
[facility] - ED Test Date: 2020-04-24 Pat Name: APRIL SAMANO Department: Room: - Gender: Female [employer] Machine [employer]er: [id number] : 1980 Requested By: Ori Robledo Order Number: [id number] Reading MD: Mariah Hogue Measurements Intervals [place] Rate: 90 P: 69 VT: 163 QRS: -5 QRSD: 134 T: 111 QT: 398 QTc: 488 Interpretive Statements SINUS RHYTHM INTRAVENTRICULAR CONDUCTION DELAY PROLONGED QTC No prior Electronically Signed on 04-24-2020 20:12:59 EST by Mariah Hogue
== END 2020-04-24 12:59 | disposition home or self-care (01) ==
LOC: M ED 10:53 → EDBD 10:53 → M ED 12:59
DX: R00.2 Palpitations (principal); D68.8 Other specified coagulation defects; Z79.899 Other long term (current) drug therapy; Z79.01 Long term (current) use of anticoagulants

== ENCOUNTER → 2020-04-27 | Outpatient (CLI) | payer OTHER ==
[2020-04-27 09:35] LABS: INR 1.31; PROTHROMBIN TIME 16.6 SECONDS (12.5-14.3)
== END ==
LOC: M LAB 08:58
PROVIDERS: ATTEND Physician Assistant
DX: Z51.81 Encounter for therapeutic drug level monitoring (principal); Z79.01 Long term (current) use of anticoagulants

== ENCOUNTER → 2020-05-01 | Outpatient (CLI) | payer OTHER ==
[2020-05-01 11:06] LABS: INR 1.52; PROTHROMBIN TIME 18.6 SECONDS (12.5-14.3)
== END ==
LOC: M LAB 10:17
PROVIDERS: ATTEND Physician Assistant
DX: Z79.01 Long term (current) use of anticoagulants (principal)

== ENCOUNTER → 2020-05-08 | Outpatient (CLI) | payer OTHER ==
[2020-05-08 12:37] LABS: INR 1.73; PROTHROMBIN TIME 20.6 SECONDS (12.5-14.3)
== END ==
LOC: M LAB 11:48
PROVIDERS: ATTEND Physician Assistant
DX: Z95.2 Presence of prosthetic heart valve (principal); Z79.01 Long term (current) use of anticoagulants

== ENCOUNTER → 2020-05-16 | Outpatient (CLI) | payer OTHER ==
[2020-05-16 10:30] LABS: INR 2.02; PROTHROMBIN TIME 23.3 SECONDS (12.5-14.3)
== END ==
LOC: M LAB 09:15
PROVIDERS: ATTEND Physician Assistant
DX: Z95.2 Presence of prosthetic heart valve (principal); Z79.899 Other long term (current) drug therapy

== ENCOUNTER → 2020-06-01 | Outpatient (CLI) | payer OTHER ==
[2020-06-01 07:03] LABS: INR 2.42; PROTHROMBIN TIME 26.8 SECONDS (12.5-14.3)
== END ==
LOC: M LAB 06:21
PROVIDERS: ATTEND Physician Assistant
DX: Z95.2 Presence of prosthetic heart valve (principal); Z79.01 Long term (current) use of anticoagulants